=== PATIENT | male | born 1930 | race Caucasian/White ===

== ENCOUNTER → 2016-05-07 | Outpatient (CLI) | payer MEDICARE, BC ==
[~2016-05-07] MED LIST: ASPI81TA11 PO; CALA180T PO; HYDR25R PR; PRAV40TA PO; TAB-TAB PO; VITA500T10 PO; WARF-60 PO
[2016-05-07 12:40] LABS: INTERNATIONAL NORMALIZED RATIO 2.1 RATIO
== END ==
LOC: PLAB 05-06 10:03
DX: I48.0 Paroxysmal atrial fibrillation (principal)
CPT/HCPCS: 36415; 85610

== ENCOUNTER → 2016-06-04 | Outpatient (CLI) | payer MEDICARE, BC ==
[2016-06-04 11:56] LABS: PROTHROMBIN TIME - PATIENT 22.5 SEC (9.8-11.6)
== END ==
LOC: PLAB 10:53
DX: I48.0 Paroxysmal atrial fibrillation (principal)
CPT/HCPCS: 36415; 85610

== ENCOUNTER → 2016-07-04 | Outpatient (CLI) | payer MEDICARE, BC ==
[2016-07-04 12:52] LABS: INTERNATIONAL NORMALIZED RATIO 2.2 RATIO; PROTHROMBIN TIME - PATIENT 25.5 SEC (9.8-11.6)
== END ==
LOC: PLAB 09:47
DX: I48.0 Paroxysmal atrial fibrillation (principal)
CPT/HCPCS: 36415; 85610